=== PATIENT | female | born 1985 | race Two or more races ===

== ENCOUNTER 2020-09-18 08:40 | Emergency (ER) | payer OTHER ==
[~2020-09-18] VITALS: Ht 149.9 cm; Wt 57.2 kg
[2020-09-18] MEDS ORDERED: PRENATABS FA T1 EACH (08:54)
[2020-09-18] MEDS ORDERED: MACROBID 100 M100 MG PO (11:47)
== END 2020-09-18 12:14 | disposition home or self-care (01) ==
LOC: ER 08:40
DX: O23.41 Unspecified infection of urinary tract in pregnancy, first trimester (principal); O26.891 Other specified pregnancy related conditions, first trimester; R10.2 Pelvic and perineal pain; Z34.01 Encounter for supervision of normal first pregnancy, first trimester

== ENCOUNTER 2020-10-18 11:11 | Emergency (ER) | payer OTHER ==
[~2020-10-18] VITALS: Ht 149.9 cm; Wt 59.4 kg
[~2020-10-18 11:11] MED LIST: MACROBID 100 M100 MG PO; PRENATABS FA T1 EACH
[2020-11-16] MEDS ORDERED: BUTALB-ACETAMI1 EAC2 PO
== END 2020-10-18 16:21 | disposition home or self-care (01) ==
LOC: ER 11:11
DX: O46.92 Antepartum hemorrhage, unspecified, second trimester (principal); Z3A.22 22 weeks gestation of pregnancy

== ENCOUNTER 2020-11-16 21:30 | Emergency (ER) | payer OTHER ==
[~2020-11-16] VITALS: Ht 149.9 cm; Wt 66.7 kg
[~2020-11-16 21:30] MED LIST changes: +BUTALB-ACETAMI1 EAC2 PO
[2020-11-16] MEDS ORDERED: ONDANSETRON ODT8 MG (22:05)
[2020-11-16] MEDS ORDERED: ADALAT CC30 MG (22:05)
== END 2020-11-17 01:05 | disposition home or self-care (01) ==
LOC: ER 21:30
DX: R50.9 Fever, unspecified (principal)

== ENCOUNTER 2021-01-16 10:32 | Outpatient (CLI) | payer OTHER ==
[~2021-01-16 10:32] MED LIST changes: +ADALAT CC30 MG; +ONDANSETRON ODT8 MG
[2021-01-16] MEDS ORDERED: PROMETRIUM200 MG VAG (16:35)
== END 2021-01-16 12:20 | disposition home or self-care (01) ==
LOC: PRENATAL 10:32
PROVIDERS: ATTEND Obstetrics & Gynecology Maternal & Fetal Medicine
DX: O35.0XX1 Maternal care for (suspected) central nervous system malformation in fetus, fetus 1 (principal); O35.3XX1 Maternal care for (suspected) damage to fetus from viral disease in mother, fetus 1; O98.512 Other viral diseases complicating pregnancy, second trimester; O26.872 Cervical shortening, second trimester; O44.02 Complete placenta previa NOS or without hemorrhage, second trimester; Z36.89 Encounter for other specified antenatal screening; Z3A.24 24 weeks gestation of pregnancy

== ENCOUNTER 2021-02-06 10:12 | Inpatient (IN) | payer OTHER ==
[~2021-02-06] VITALS: Ht 149.9 cm; Wt 75.7 kg
[~2021-02-06 10:12] MED LIST changes: +PROMETRIUM200 MG VAG
== END 2021-02-08 15:00 | disposition designated cancer center or children's hospital (05) | DRG 832 ==
LOC: LDR 10:12
PROVIDERS: ADMIT Obstetrics & Gynecology Obstetrics; ATTEND Obstetrics & Gynecology Obstetrics
PROC: 4A1HXFZ Monitoring of Products of Conception, Cardiac Rhythm, External Approach (ICD-10-PCS; principal; 2021-02-06)
PROC: BY4CZZZ Ultrasonography of Second Trimester, Single Fetus (ICD-10-PCS; 2021-02-06)
DX: O44.12 Complete placenta previa with hemorrhage, second trimester (principal); O26.872 Cervical shortening, second trimester; Z3A.26 26 weeks gestation of pregnancy